=== PATIENT | female | born 1995 | race Caucasian/White ===

== ENCOUNTER 2023-10-02 07:48 | Day surgery (SDC) | payer OTHER ==
[2023-09-30 16:13] VITALS: BMI 29.8
[2023-10-02] MEDS ORDERED: Lidocaine 1% PF 5 ML VIAL ONE (09:20)
[2023-10-02] MEDS ORDERED: PROPOFOL 40 ML ONE (10:48)
[2023-10-02] MEDS ORDERED: PROPOFOL 20 ML ONE (11:05)
== END 2023-10-02 11:42 | disposition home or self-care (01) ==
LOC: CSHULT 07:48
PROVIDERS: ATTEND Internal Medicine Gastroenterology
PROC: 0DJ08ZZ Inspection of Upper Intestinal Tract, Via Natural or Artificial Opening Endoscopic (ICD-10-PCS; principal; 2023-10-02)
DX: K44.9 Diaphragmatic hernia without obstruction or gangrene (principal); K22.89 Other specified disease of esophagus; K21.9 Gastro-esophageal reflux disease without esophagitis; F41.9 Anxiety disorder, unspecified; E66.9 Obesity, unspecified; Z68.29 Body mass index [BMI] 29.0-29.9, adult; Z79.899 Other long term (current) drug therapy
CPT/HCPCS: 76700; J2704